=== PATIENT | male | born 1930 | race Caucasian/White ===

== ENCOUNTER 2016-02-22 00:20 | Inpatient (IN) | payer MEDICARE, BC ==
[~2016-02-22] VITALS: Ht 177.8 cm; Wt 87.8 kg
[~2016-02-22 00:20] MED LIST: ALBUTEROL SULFAT3 M3; ALLEGRA180 MG PO; ASPIRIN 81M81 MG/TA2 PO; ASPIRIN E.C. 8181 MG PO; ATROVENT I0.2 MG/1 M IH; ATROVENT0.018 MG/A IH; AVALIDE PO; AVAPRO TAB150 MG/TAB PO; AVAPRO300 M1 PO; BETAPACE 80MG80 MG PO; BETAPACE AF160 MG PO; BIAXIN 500MG T500 MG PO; BROVANA15 MCG/2 M IH; BUDESONIDE1 POW; CEPHALEXIN500 M1 PO; CETIRIZINE10 MG PO; CLEOCIN HC150 MG/CAP; CLEOCIN HC150 MG/CAP PO; CLEOCIN HCL300 MG PO; CLINDAMYCIN150 MG PO; COLCRYS0.6 MG PO; COUMADIN 5MG5 MG/TAB PO; COZAAR 50MG50 MG/TAB PO; DALIRESP500 MCG PO; DELTASONE20 MG PO; DIFLUCAN 100MG100 MG PO; DUONEB 3 MG/3 ML3 ML IH; FERRO-TIME325 MG PO; FLONASE NASAL S16 GM NS; FOLIC ACID PO; GENTAMICIN180 MG/502 NS; HCTZ; HEPARIN 50500 U/5 ML IV; IPRATROPIUM BROM3 M1 IH; JANUVIA50 MG PO; K-DUR 10 MEQ T10 MEQ PO; K-DUR 2020 MEQ PO; K-DUR20 MEQ PO; LANTUS SOLOS100 U/ML SQ; LANTUS100 U/ML SQ; LASIX 20MG TABL20 MG PO; LASIX 40MG TABL40 MG PO; LASIX20 MG PO; LEVAQUIN 5500 MG/TA1 PO; LEVAQUIN 750MG750 M1 PO; LEVAQUIN 750MG750 MG PO; LEVEMIR100 U/ML SQ; METFORMIN500 MG PO; METHOTREXA2.5 MG/TAB PO; MINOCYCLIN100 MG/CAP PO; MIRALAX PA17 GM/Dose PO; MITIGARE0.6 MG PO; MUCINEX D1 TER; MUCOMYST 20200 MG/ML IH; NORCO 325 MG-51 TAB PO; NS INT FLUSH 1010 ML IV; NYSTATIN OR100 MU/ML PO; OCEAN NASAL SPR45 ML NS; PERFOROMIS20 MCG/2 M IH; POTASSIUM20 MEQ PO; PREDNISONE 2.52.5 MG PO; PREDNISONE 5MG5 MG PO; PREDNISONE10 M1 PO; PREDNISONE10 MG PO; PREDNISONE20 MG PO; PRIL40 PO; PRILOSEC 20MG20 MG PO; PRILOSEC10 MG; PROTONIX 40MG T40 MG PO; PULMICORT0.5 MG/2 M IH; RT SALINE 0.9% N3 ML IH; RT SPIRIVA18 MCG IH; SENOKOT S 50 MG1 TAB PO; SILVADENE CREAM1 TU TP; SINGULAIR 110 MG/TAB PO; SINGULAIR10 MG PO; SSKI1 GM/ML PO; SUDAFED PO; THEO-24 20200 MG/CAP PO; THEO-24100 MG PO; THEO-24400 MG PO; THEO-DUR 1100 MG/TAB PO; THEO-DUR 2200 MG/TAB PO; ULORIC40 MG PO; UNIPHYL 400MG400 MG PO; VICODIN 5/5001 UDTAB PO; ZAROXOLYN5 MG; ZAROXOLYN5 MG PO; ZITHROMAX 250M250 MG PO; ZYLOPRIM 300MG300 MG PO; ZYRTEC 10MG10 MG PO; ZYRTEC5 MG PO; [UNRECOGNIZED DRUG - OTHER] IH
[2016-02-22] MEDS ORDERED: ZAROXOLYN 2.52.5 MG PO (00:37)
[2016-02-22 01:12] LABS: MEAN CELL VOLUME 88 fl (80.0-100.0); MEAN CORPUSCULAR HGB CONC 31 g/dl (33.0-37.0); MEAN PLATELET VOLUME 8.4 fl (7.4-10.4); PLATELET COUNT 377 K/mm3 (130-400); RED BLOOD COUNT 2.88 M/mm3 (4.20-5.60); REDCELL DISTRIBUTION WIDTH-CV 16.6 % (11.5-14.5); WHITE BLOOD COUNT 15.8 K/mm3 (4.8-10.8)
[2016-02-22 01:16] LABS: HEMATOCRIT 25.4 % (42.0-52.0); HEMOGLOBIN 7.8 g/dl (13.5-18.0); MEAN CORPUSCULAR HEMOGLOBIN 27 pg (27.0-31.0)
[2016-02-22 01:17] LABS: ADD PATHOLOGY DIFF REVIEW NO; INR 1.3 (0.8-3.0)
[2016-02-22 01:20] LABS: PARTIAL THROMBOPLASTIN TIME 30.4 SECONDS (26.0-37.0)
[2016-02-22 01:24] LABS: ADJUSTED CALCIUM 10.4 mg/dL (8.4-10.2); ALBUMIN 2.9 gm/dL (3.5-5.0); BILIRUBIN,TOTAL 0.6 mg/dL (0.0-1.0); CALCIUM 9.5 mg/dL (8.4-10.2); CREATININE, serum 1.43 mg/dL (0.66-1.25); POTASSIUM 3.6 mmol/L (3.4-5.0); TOTAL PROTEIN 5.7 gm/dL (6.4-8.2)
[2016-02-22 01:32] LABS: ANISOCYTOSIS 1+; BAND 16 % (0-10); MYELOCYTE 1 % (0-0); NEUTROPHILS 75 % (42.0-75.2); PLATELET ESTIMATE NORMAL (NORMAL); TOTAL CELLS COUNTED 100
[2016-02-22 01:33] LABS: POLYCHROMASIA 1+
[2016-02-22 01:36] LABS: TROPONIN-I 0.03 ng/mL (0.000-0.034)
[2016-02-22 02:46] VITALS: PULSE 95; TEMP 100.9
[2016-02-22 07:49] VITALS: BP 154/54; PULSE 94; TEMP 98.7
[2016-02-22 10:09] LABS: PH 5 (5-8); SQUAMOUS EPITHELIAL None Seen /hpf; URINE APPEARANCE Clear; URINE BACTERIA None Seen /hpf; URINE BILIRUBIN Negative (NEGATIVE); URINE BLOOD Negative (NEGATIVE); URINE COLOR Yellow; URINE GLUCOSE 1+ (NEGATIVE); URINE KETONE Negative (NEGATIVE); URINE RBC 0-2 /hpf; URINE UROBILINOGEN Negative (NEGATIVE); URINE WBC 0-2 /hpf
[2016-02-22 11:56] VITALS: BP 123/46; PULSE 100; TEMP 98.3
== END 2016-02-22 23:50 | disposition expired | DRG 189 ==
LOC: COL.ER 00:20 → MEDICAL 01:47
PROVIDERS: Family Medicine
DX: J96.21 Acute and chronic respiratory failure with hypoxia (principal); I12.0 Hypertensive chronic kidney disease with stage 5 chronic kidney disease or end stage renal disease; N18.6 End stage renal disease; I50.30 Unspecified diastolic (congestive) heart failure; Z51.5 Encounter for palliative care; Z66 Do not resuscitate; I48.0 Paroxysmal atrial fibrillation; D86.0 Sarcoidosis of lung; J43.9 Emphysema, unspecified; E11.22 Type 2 diabetes mellitus with diabetic chronic kidney disease; Z87.891 Personal history of nicotine dependence
CPT/HCPCS: 99222-AI; J0696; J1170; J1815; J2060; J2270; J2704; J7030